=== PATIENT | male | born 1990 | race Caucasian/White ===

== ENCOUNTER 2020-09-01 17:56 | Observation (INO) | payer OTHER, SELFPAY ==
[2020-09-01 19:11] LABS: Protime INR 1.05
[2020-09-01 19:20] LABS: Absolute Lymphocytes (CBC) 2.1 K/uL (0.7-4.9); Basophils % 0.6 % (0-1.3); MPV 6.6 fL (7.6-11.3); RBC Red Blood Cell Count 4.05 M/uL (4.33-5.43)
[2020-09-01 19:45] LABS: ALT/SGPT 37 U/L (12-78); AST/SGOT 26 U/L (15-37); Albumin 3.3 g/dL (3.4-5.0); Alkaline Phosphatase 194 U/L (45-117); BUN Blood Urea Nitrogen 14 mg/dL (7-18); Bicarbonate 31 mmol/L (21-32); Bilirubin Direct < 0.1 mg/dL (0-0.2); Bilirubin Total 0.4 mg/dL (0.2-1.0); Glucose Level 85 mg/dL (74-106); Potassium 3.7 mmol/L (3.5-5.1); Protein, Total 6.8 g/dL (6.4-8.2); Sodium Level 140 mmol/L (136-145)
--- NOTE | 2020-09-01 21:51 | ER ---
Nurse's Notes [facility] Name: Artie Martin Age: 30 yrs Sex: Male : 1990 Arrival Date: 09/01/2020 Time: 18:02 Bed 25 Private MD: Diagnosis: Benzodiazapine Overdose;Overdose on muscle relaxants ;Altered mental status, unspecified Presentation: 09/01 18:02 Chief complaint: EMS states: history of substance abuse, substance of choice is dm5 typically meth. Pt states that he took 4 or 5 Soma. Pt states that he just wanted to feel good. Coronavirus screen: Client denies travel out of the [place] in the last 14 days. At this time, the client does not indicate any symptoms associated with coronavirus-19. Ebola Screen: Patient negative for fever greater than or equal to 101.5 degrees Fahrenheit, and additional compatible Ebola Virus Disease symptoms Patient denies exposure to infectious person. Patient denies travel to an Ebola-affected area in the 21 days before illness onset. No symptoms or risks identified at this time. 18:02 Method Of Arrival: EMS: [facility] dm5 18:13 Note poison control contacted, due to time since ingestion their suggestion is dm5 symptomatic supportive care, to monitor for hyermania, hypotension and tachycardia. Per poison control due to mental state it is likely that he ingested greater than 10 Soma at 350mg. 18:13 Initial Sepsis Screen: Does the patient meet any 2 criteria? HR > 90 bpm. No. Patient's dm5 initial sepsis screen is negative. Does the patient have a suspected source of infection? No. Patient's initial sepsis screen is negative. Risk Assessment: Do you want to hurt yourself or someone else? Patient reports no desire to harm self or others. Note pt just reported that he also took three 2 mg Xanax. Onset of symptoms was September 01, 2020. 18:13 Acuity: ASHELY 2 dm5 Historical: - PMHx: 18:23 Seizures; dm5 - PSHx: 18:23 right knee surgery; back surgery; dm5 - Immunization history:: Adult Immunizations unknown. - Social history:: Smoking status: unknown. Screenin:30 Abuse screen: Denies threats or abuse. Nutritional screening: No deficits noted. jv1 Tuberculosis screening: No symptoms or risk factors identified. Fall Risk None identified. Assessment: 19:30 General: Appears in no apparent distress. comfortable, obese, Behavior is calm, jv1 cooperative, anxious. Pain: Denies pain. Neuro: Level of Consciousness is awake, alert, obeys commands, Oriented to person, place, time, situation, Middle [employer] Director are equal bilaterally Moves all extremities. Gait is steady, Facial symmetry appears normal. Cardiovascular: Denies chest pain, Heart tones S1 S2 Capillary refill < 3 seconds Pulses are all present. Respiratory: Airway is patent Respiratory effort is even, unlabored, Respiratory pattern is regular, symmetrical, Breath sounds are clear bilaterally. GI: Abdomen is round non-distended, Bowel sounds present X 4 quads. : No signs and/or symptoms were reported regarding the genitourinary system. EENT: No signs and/or symptoms were reported regarding the EENT system. Derm: Skin is intact, is healthy with good turgor. Musculoskeletal: No signs and/or symptoms reported regarding the musculoskeletal system. 19:39 Reassessment: provider said it is okay for pt to eat. jv1 20:03 Reassessment: provider in the room with pt. jv1 20:27 Reassessment: Provider stated pt refused EKG. jv1 20:30 Reassessment: Patient appears in no apparent distress at this time. No changes from jv1 previously documented assessment. Patient and/or family updated on plan of care and expected duration. Pain level reassessed. 21:16 Reassessment: Patient appears in no apparent distress at this time. No changes from jv1 previously documented assessment. Patient and/or family updated on plan of care and expected duration. Pain level reassessed. 22:05 Reassessment: poison control on phone, updated on VS and lab results, phone call ended. sg 23:10 Reassessment: Hospitalist went to the room to assess pt. jv1 23:20 Reassessment: pt ambulating in hallway with steady gait, reports that his mom is sg outside in the parking lot. 09/02 00:00 Reassessment: Patient appears in no apparent distress at this time. No changes from jv1 previously documented assessment. Patient and/or family updated on plan of care and expected duration. Pain level reassessed. pt stated he is going to stay. 04:52 Reassessment: Patient appears in no apparent distress at this time. pt on the call sg light, requesting ice water. pt provided with ice water, tolerated PO water at this time, will continue to monitor. Vital Signs: 09/01 18:13 BP 118 / 72; Pulse 117; Resp 14; Pulse Ox 99% on R/A; dm5 19:30 BP 115 / 65; Pulse 96; Resp 18; Temp 98.1; Pulse Ox 100% on R/A; Pain 0/10; jv1 20:30 BP 109 / 60; Pulse 88; Resp 18; Temp 98; Pulse Ox 89% on R/A; Pain 0/10; jv1 21:30 BP 114 / 69; Pulse 73; Resp 18; Temp 98.14; Pulse Ox 99% on 2 lpm NC; Pain 0/10; jv1 22:30 BP 117 / 72; Pulse 75; Resp 18; Temp 98.3; Pulse Ox 98% on 2 lpm NC; jv1 23:30 BP 118 / 70; Pulse 75; Resp 18; Temp 98.0; Pulse Ox 100% ; Pain 0/10; jv1 ED Course: 18:02 Patient arrived in ED. dm5 18:09 Guido Scott PA is PHCP. jr8 18:09 Rich Moore MD is Attending Physician. jr8 18:22 Triage completed. dm5 18:56 Thea Rosado, MARCIN is Primary Nurse. dm5 19:30 Arm band placed on right wrist. jv1 19:30 Patient has correct armband on for positive identification. Bed in low position. Call jv1 light in reach. Side rails up X2. 21:49 Walter Jj MD is Hospitalizing Provider. jr8 21:55 Jefferson Jj MD is Hospitalizing Provider. la1 09/02 00:05 No provider procedures requiring assistance completed. Patient admitted, IV remains in mg2 place. Administered Medications: No medications were administered Outcome: 09/01 21:50 Decision to Hospitalize by Provider. jr8 09/02 00:05 Admitted to ER Hold. [facility]. mg2 Condition: stable Instructed on the need for admit, Demonstrated understanding of instructions. 08:03 Patient left the ED. dm5 Signatures: Thea Rosado RN RN ian5 Wayne Coughlin RN RN Guido Scott PA PA jr8 Efrain Pinto FNP-Bita TELEPHONE SERVICE ADVISER-Cla1 Lex Pro, RN RN mg2 Megan Kapadia, RN RN jv1
--- NOTE | 2020-09-01 21:51 | EDPHYS ---
Physician Documentation [facility] Name: Artie Martin Age: 30 yrs Sex: Male : 1990 Arrival Date: 09/01/2020 Time: 18:02 Bed 25 Private MD: ED Physician Rich Moore HPI: 09/01 19:08 This 30 yrs old Male presents to ER via EMS with complaints of Overdose. jr8 19:08 The patient presents to the emergency department after a known overdose, that was jr8 intentional. Context: Method: the patient has a confirmed or suspected ingestion, of benzodiazepines, muscle relaxants , Time: the patient's OD/poisoning occurred at an unknown time, the OD/poisoning occurred at at home. Associated signs and symptoms: Pertinent positives: decreased level of consciousness. Severity of symptoms: At their worst the symptoms were mild in the emergency department the symptoms are unchanged. The patient has not experienced similar symptoms in the past. The patient has not recently seen a physician. Patient stated that he was prescribed in past Xanax and soma for back pain related to injury and surgery. Stated that he had been having a bad day and wanted to relax so took three 2 mg Xanax and three 350 mg soma. Family had found him non arousable at home and called EMS. Patient alert and oriented to person, place, time, event in ED. Denies suicidal ideations . Historical: - PMHx: 18:23 Seizures; dm5 - PSHx: 18:23 right knee surgery; back surgery; dm5 - Immunization history:: Adult Immunizations unknown. - Social history:: Smoking status: unknown. ROS: 19:08 Eyes: Negative for injury, pain, redness, and discharge, ENT: Negative for injury, jr8 pain, and discharge, Neck: Negative for injury, pain, and swelling, Cardiovascular: Negative for chest pain, palpitations, and edema, Respiratory: Negative for shortness of breath, cough, wheezing, and pleuritic chest pain, Abdomen/GI: Negative for abdominal pain, nausea, vomiting, diarrhea, and constipation, Back: Negative for injury and pain, MS/Extremity: Negative for injury and deformity, Skin: Negative for injury, rash, and discoloration. 19:08 Neuro: Negative for headache, weakness, numbness, tingling, and seizure. Exam: 19:08 Eyes: Pupils equal round and reactive to light, extra-ocular motions intact. Lids and jr8 lashes normal. Conjunctiva and sclera are non-icteric and not injected. Cornea within normal limits. Periorbital areas with no swelling, redness, or edema. ENT: Nares patent. No nasal discharge, no septal abnormalities noted. Tympanic membranes are normal and external auditory canals are clear. Oropharynx with no redness, swelling, or masses, exudates, or evidence of obstruction, uvula midline. Mucous membranes moist. Neck: Trachea midline, no thyromegaly or masses palpated, and no cervical lymphadenopathy. Supple, full range of motion without nuchal rigidity, or vertebral point tenderness. No Meningismus. Cardiovascular: Regular rate and rhythm with a normal S1 and S2. No gallops, murmurs, or rubs. Normal PMI, no JVD. No pulse deficits. Respiratory: Lungs have equal breath sounds bilaterally, clear to auscultation and percussion. No rales, rhonchi or wheezes noted. No increased work of breathing, no retractions or nasal flaring. Abdomen/GI: Soft, non-tender, with normal bowel sounds. No distension or tympany. No guarding or rebound. No evidence of tenderness throughout. Back: No spinal tenderness. No costovertebral tenderness. Full range of motion. Skin: Warm, dry with normal turgor. Normal color with no rashes, no lesions, and no evidence of cellulitis. MS/ Extremity: Pulses equal, no cyanosis. Neurovascular intact. Full, normal range of motion. 19:08 Constitutional: The patient appears alert, awake, sleepy in appearance 19:08 Neuro: Orientation: to person, place, time \T\ situation. Mentation: able to follow commands, slow to respond, Cranial nerves: CN I not tested, CN II- XII are normal as tested, visual wilkinson are intact. extraocular movements are intact, Speech is clear and appropriate. Tongue strength is normal, Motor: moves all fours, Sensation: no obvious gross deficits. Vital Signs: 18:13 BP 118 / 72; Pulse 117; Resp 14; Pulse Ox 99% on R/A; dm5 19:30 BP 115 / 65; Pulse 96; Resp 18; Temp 98.1; Pulse Ox 100% on R/A; Pain 0/10; jv1 20:30 BP 109 / 60; Pulse 88; Resp 18; Temp 98; Pulse Ox 89% on R/A; Pain 0/10; jv1 21:30 BP 114 / 69; Pulse 73; Resp 18; Temp 98.14; Pulse Ox 99% on 2 lpm NC; Pain 0/10; jv1 22:30 BP 117 / 72; Pulse 75; Resp 18; Temp 98.3; Pulse Ox 98% on 2 lpm NC; jv1 23:30 BP 118 / 70; Pulse 75; Resp 18; Temp 98.0; Pulse Ox 100% ; Pain 0/10; jv1 MDM: 18:09 Patient medically screened. jr8 19:14 Data reviewed: vital signs, nurses notes, lab test result(s). Data interpreted: Pulse jr8 oximetry: on room air is 99 %. Interpretation: normal. Counseling: I had a detailed discussion with the patient and/or guardian regarding: the historical points, exam findings, and any diagnostic results supporting the discharge/admit diagnosis, lab results, the need for outpatient follow up, a family practitioner, to return to the emergency department if symptoms worsen or persist or if there are any questions or concerns that arise at home. ED course: Patient doing better. No respiratory compromise at this time. Will continue to monitor for another hour or so . 21:47 ED course: Patient started to become more lethargic. While sleeping continues to need jr8 oxygen supplementation now. To unsafe to go home at this time. Will observe over night . 09/01 18:12 Order name: Acetaminophen; Complete Time: 19:51 5 09/01 18:12 Order name: Basic Metabolic Panel; Complete Time: 19:51 dm5 09/01 18:12 Order name: CBC with Diff; Complete Time: 19:31 dm5 09/01 18:12 Order name: ETOH Level; Complete Time: 19:51 dm5 09/01 18:12 Order name: Hepatic Function; Complete Time: 19:51 dm5 09/01 18:12 Order name: PT-INR; Complete Time: 19:17 dm5 09/01 18:12 Order name: Ptt, Activated; Complete Time: 19:17 dm5 09/01 18:12 Order name: Salicylate; Complete Time: 19:51 dm5 09/01 18:12 Order name: Urine Drug Screen 09/02 03:11 Order name: COVID-19 mg2 09/02 05:34 Order name: CORONAVIRUS EDMS 09/02 05:40 Order name: Basic Metabolic Panel; Complete Time: 20:25 EDMS 09/02 05:55 Order name: CBC with Automated Diff; Complete Time: 20:25 EDMS 09/02 06:21 Order name: SARS-COV-2 RT PCR; Complete Time: 20:25 EDTX 09/01 18:12 Order name: EKG; Complete Time: 18:13 dm5 09/01 18:12 Order name: IV Saline Lock; Complete Time: 18:56 dm5 09/01 18:12 Order name: Labs collected and sent; Complete Time: 18:56 dm5 Administered Medications: No medications were administered Disposition: 09/02 09:50 Co-signature as Attending Physician, Rich Moore MD I agree with the assessment and kdr plan of care. Disposition: 09/01/20 21:50 Hospitalization ordered by Jefferson Jj for Observation. Preliminary diagnosis are Benzodiazapine Overdose, Overdose on muscle relaxants , Altered mental status, unspecified. - Bed requested for [facility] ER HOLD. - Status is Observation. dm5 - Condition is Stable. - Problem is new. - Symptoms are unchanged. Signatures: Dispatcher [employer] [facility] Thea Rosado, RN RN dm5 Rich Moore MD MD [facility] Guido Scott PA PA jr8 Efrain Pinto, BUTTON MACHINE OPERATOR-C BUTTON MACHINE OPERATOR-Cla1 Norah Lr, RN RN cg Megan Kapadia, RN RN jv1 Corrections: (The following items were deleted from the chart) 09/01 20:20 18:12 EKG - Nurse/Tech ordered. dm5 jp3 21:55 21:50 Hospitalization Ordered by Walter Jj MD for Observation. Preliminary diagnosis la1 is Benzodiazapine Overdose; Overdose on muscle relaxants ; Altered mental status, unspecified. Bed requested for Telemetry/MedSurg (observation). Status is Observation. Condition is Stable. Problem is new. Symptoms are unchanged. jr8 23:19 21:55 09/01/2020 21:50 Hospitalization Ordered by Jefferson Jj MD for Observation. cg Preliminary diagnosis is Benzodiazapine Overdose; Overdose on muscle relaxants ; Altered mental status, unspecified. Bed requested for Telemetry/MedSurg (observation). Status is Observation. Condition is Stable. Problem is new. Symptoms are unchanged. la1 09/02 08:03 09/01 23:19 09/01/2020 21:50 Hospitalization Ordered by Jefferson Jj MD for dm5 Observation. Preliminary diagnosis is Benzodiazapine Overdose; Overdose on muscle relaxants ; Altered mental status, unspecified. Bed requested for [facility] ER HOLD. Status is Observation. Condition is Stable. Problem is new. Symptoms are unchanged. cg
--- NOTE | 2020-09-01 23:36 | P.HP ---
Certification for Inpatient Patient admitted to: Observation With expected LOS: <2 Midnights Patient will require the following post-hospital care: None Practitioner: I am a practitioner with admitting privileges, knowledge of patient current condition, hospital course, and medical plan of care. Services: Services provided to patient in accordance with Admission requirements found in Title 42 Section 412.3 of the Code of Federal Regulations <Efrain Pinto - Last Filed: 09/01/20 23:31> Patient History Date of Service: 09/01/20 History of Present Illness: 30-year-old male with history of seizure disorder presents to the ER for altered mental status. Patient reported that he was having a bad day in to relax so he took 3 2 mg Xanax and 3 350 mg somas. Patient denied suicidal ideation to the emergency department provider. Labs unremarkable, plan was for discharge but patient mental status decline, patient is extremely somnolent, not responding to verbal stimulus, responsive only to significant painful stimulus with some occasional snoring respirations, patient maintaining his airway and saturating well. ED provider wishes to admit patient for further evaluation and management. When I saw the patient in the ER he was sleeping, not responsive to loud verbal stimulus or tactile stimulus, opened eyes to painful stimulus but quickly fell back asleep. Will admit for further evaluation and management, will downgrade to med surge once patient's mental status improves. - Past Medical/Surgical History -: seizure disorder -: None Psychosocial/ Personal History: Unable to obtain - Family History Family History: Reviewed- Non-Contributory - Social History Smoking Status: Unknown if ever smoked CD- Drugs: Yes Place of Residence: Home <Efrain Pinto - Last Filed: 09/01/20 23:31> Date of Service: 09/02/20 <Jefferson Jj - Last Filed: 09/02/20 22:08> Allergies No Known Drug Allergies Allergy (Verified 09/02/20 05:35) Unknown Review of Systems is unable to be obtained <Efrain Pinto - Last Filed: 09/01/20 23:31> Physical Examination - Physical Exam General: Other (Somnolent) HEENT: Atraumatic, Normocephalic Neck: Supple Respiratory: Clear to auscultation bilaterally, Normal air movement Cardiovascular: No edema, Normal S1 S2 Capillary refill: <2 Seconds Gastrointestinal: Normal bowel sounds, Soft and benign, No tenderness, No masses, No rebound Musculoskeletal: No contractures, No erythema, No tenderness Integumentary: No significant lesion, No tenderness/swelling, No erythema Neurological: Normal speech, Normal strength at 5/5 x4 extr, Normal tone - Studies Laboratory Data (last 24 hrs) 09/01/20 18:50: PT 12.4, INR 1.05, APTT 31.5 09/01/20 18:50: WBC 8.6, Hgb 11.5 L, Hct 33.0 L, Plt Count 263 09/01/20 18:50: Sodium 140, Potassium 3.7, BUN 14, Creatinine 1.24, Glucose 85, Total Bilirubin 0.4, AST 26, ALT 37, Alkaline Phosphatase 194 H <Efrain Pinto - Last Filed: 09/01/20 23:31> Assessment and Plan - Plan Assessment Altered mental status secondary to Intentional drug overdose without suicidal ideation Seizure disorder Plan Altered mental status secondary to Intentional drug overdose without suicidal ideation: At this time patient is still very somnolent, responsive to painful stimulus only with occasional snoring respirations. Will need to observe closely until mentation improves. Continue with IV fluids, hold all narcotics, benzodiazepines, other medications that affect mental status. DVT prophylaxis with Lovenox 40 mg subcutaneous once daily. Patient can be discharged once mentation improves. Seizure disorder: Obtain and continue home medications. Discharge Plan: Home Plan to discharge in: 24 Hours - Advance Directives Does patient have a Living Will: No Does patient have a Durable POA for Healthcare: No - Code Status/Comfort Care Code Status Assessed: Yes (Full code) Critical Care: No Time Spent Managing Pts Care (In Minutes): 55 <Efrain Pinto - Last Filed: 09/01/20 23:31> - Plan Plan of care reviewed as outlined above and agree with Efrain Pinto monitor, IVF, likely dc within 24hrs <Jefferson Jj - Last Filed: 09/02/20 22:08>
[2020-09-02] MEDS ORDERED: ONDANSETRON 4 MG/2 ML VIAL IV PRN (01:19)
[2020-09-02] MEDS ORDERED: NA CHLORIDE 0.9% 1,000 ML IV SCH (01:19)
[2020-09-02] MEDS ORDERED: ACETAMINOPHEN 500 MG TAB PO PRN (01:19)
[2020-09-02 01:58] VITALS: O2SAT 2; BMI 28.1
--- NOTE | 2020-09-02 02:08 | P.DS ---
Admission Date: 09/01/20 Discharge Date: 09/02/20 Primary Care Provider: None Disposition: ROUTINE DISCHARGE Discharge Condition: GOOD Reason for Admission: Intentional overdose without suicidal ideations Consultations: None Procedures: None Brief History of Present Illness: 30-year-old male with history of seizure disorder presents to the ER for altered mental status. Patient reported that he was having a bad day in 1 to relax so he took 3 2 mg Xanax and 3 350 mg somas. Patient denied suicidal ideation to the emergency department provider. Labs unremarkable, plan was for discharge but patient mental status decline, patient is extremely somnolent, not responding to verbal stimulus, responsive only to significant painful stimulus with some occasional snoring respirations, patient maintaining his airway and saturating well. ED provider wishes to admit patient for further evaluation and management. When I saw the patient in the ER he was sleeping, not responsive to loud verbal stimulus or tactile stimulus, opened eyes to painful stimulus but quickly fell back asleep. Will admit for further evaluation and management, will downgrade to med [facility] once patient's mental status improves. Hospital Course: Patient was admitted after intentionally taking extra dose of Xanax and Soma in order to relax after he reported he had a stressful day. Patient is awake, alert, oriented x3 at this time. Patient adamantly denies any thoughts of suicidal ideations self-harm or thoughts of harming others. Patient wished to be late last night but I advised against this as he still was drowsy, at that time he wished to leave against medical advice, I had him called his mother who would be the one to pick him up if he was to leave and discussed his condition with her. She also preferred that he stay in and the 2 of us together convinced him to stay overnight. Patient did well throughout the night, saturating fine, much more alert, tolerating p.o.. Again strictly denying any thoughts of harming himself. This was also discussed with patient's mother. Patient is stable for discharge at this time. General: Alert, In no apparent distress HEENT: Atraumatic, PERRLA Neck: Supple, JVD not distended Respiratory: Clear to auscultation bilaterally, Normal air movement Cardiovascular: Regular rate/rhythm, Normal S1 S2 Gastrointestinal: Normal bowel sounds, No tenderness Musculoskeletal: No tenderness Integumentary: No rashes Neurological: Normal speech, Normal tone, Normal affect Laboratory Data at Discharge: WBC 8.6 K/uL (4.3-10.9) 09/01/20 18:50 Hgb 11.5 g/dL (13.6-17.9) L 09/01/20 18:50 Hct 33.0 % (39.6-49.0) L 09/01/20 18:50 Plt Count 263 K/uL (152-406) 09/01/20 18:50 PT 12.4 SECONDS (9.5-12.5) 09/01/20 18:50 INR 1.05 09/01/20 18:50 APTT 31.5 SECONDS (24.3-36.9) 09/01/20 18:50 Sodium 140 mmol/L (136-145) 09/01/20 18:50 Potassium 3.7 mmol/L (3.5-5.1) 09/01/20 18:50 BUN 14 mg/dL (7-18) 09/01/20 18:50 Creatinine 1.24 mg/dL (0.55-1.3) 09/01/20 18:50 Glucose 85 mg/dL (74-106) 09/01/20 18:50 Total Bilirubin 0.4 mg/dL (0.2-1.0) 09/01/20 18:50 AST 26 U/L (15-37) 09/01/20 18:50 ALT 37 U/L (12-78) 09/01/20 18:50 Alkaline Phosphatase 194 U/L (45-117) H 09/01/20 18:50 Patient Discharge Instructions: Please do not take extra doses of your prescribed medications. Please follow up with the primary care doctor in 1-2 weeks to follow up this hospitalization. If you do develop any thoughts of hurting herself for any reason please return for re-evaluation. Diet: Regular Activity: Ad cristian Followup: Unknown,U [Primary Care Provider] - Time spent managing pt's care (in minutes): 55
[2020-09-02 03:33] VITALS: TEMP 98.1
[2020-09-02 05:31] LABS: Absolute Lymphocytes (CBC) 2.8 K/uL (0.7-4.9); Basophils % 0.4 % (0-1.3); Hematocrit 31.3 % (39.6-49.0); Lymphocytes % 35.1 % (15.3-44.8); MPV 6.9 fL (7.6-11.3); RBC Red Blood Cell Count 3.83 M/uL (4.33-5.43)
[2020-09-02 05:40] LABS: Potassium 3.6 mmol/L (3.5-5.1)
[2020-09-02 06:25] VITALS: BP 105/65
[2020-09-02] MEDS ORDERED: POTASSIUM CL SA 10 MEQ TAB PO ONE ×2 (06:53→07:30)
[2020-09-02] MEDS ORDERED: ENOXAPARIN 40 MG/0.4 ML SQ SCH (09:00)
== END 2020-09-02 07:45 | disposition home or self-care (01) ==
LOC: ER 17:56 → ERHOLD 22:38
PROVIDERS: ADMIT Hospitalist; ATTEND Hospitalist
DX: T42.4X1A Poisoning by benzodiazepines, accidental (unintentional), initial encounter (principal); T42.8X1A Poisoning by antiparkinsonism drugs and other central muscle-tone depressants, accidental (unintentional), initial encounter; G40.909 Epilepsy, unspecified, not intractable, without status epilepticus; R41.82 Altered mental status, unspecified; Z20.822 Contact with and (suspected) exposure to COVID-19
CPT/HCPCS: 36415; 80048; 80076; 80320; 80329; 85025; 85610; 85730; 99285; G0378; U0003

== ENCOUNTER 2021-02-20 17:25 | Emergency (ER) | payer SELFPAY ==
--- NOTE | 2021-02-20 17:53 | ER ---
Nurse's Notes [facility] Name: Artie Martin Age: 30 yrs Sex: Male : 1990 Arrival Date: 02/20/2021 Time: 17:26 Bed 3 Private MD: Diagnosis: Presentation: 02/20 17:32 Chief complaint: EMS states: "Pt found in front of [facility] agonal breathing. Pt kg stated, "I used cocaine, xanax, and Percocet.". Coronavirus screen: Client denies travel out of the [place] in the last 14 days. At this time, unable to obtain information related to travel outside the [place] At this time, the client does not indicate any symptoms associated with coronavirus-19. Ebola Screen: Patient negative for fever greater than or equal to 101.5 degrees Fahrenheit, and additional compatible Ebola Virus Disease symptoms Patient denies exposure to infectious person. Patient denies travel to an Ebola-affected area in the 21 days before illness onset. Initial Sepsis Screen: Does the patient meet any 2 criteria? No. Patient's initial sepsis screen is negative. Does the patient have a suspected source of infection? No. Patient's initial sepsis screen is negative. Risk Assessment: Do you want to hurt yourself or someone else? Patient reports no desire to harm self or others. Onset of symptoms. 17:32 Method Of Arrival: EMS: [facility] kg 17:32 Acuity: ASHELY 3 kg Triage Assessment: 17:46 General: Appears in no apparent distress. Behavior is calm, cooperative, appropriate kg for age, quiet. Pain: Denies pain. Historical: - Allergies: 17:46 No Known Allergies; kg - PMHx: 17:46 Seizures; Depression; kg - PSHx: 17:46 cervical sx; kg - Immunization history:: Adult Immunizations not up to date, Client reports having NOT received the Covid vaccine. - Social history:: Smoking status: Patient denies any tobacco usage or history of. Patient uses street drugs, cocaine, Xanax bars, street percet . - Family history:: not pertinent. Assessment: 17:51 Reassessment: Patient stated that he wanted to leave the hospital and go AMA. Dr. gail Deng explained on the risk and patient still wanted to go AMA. Pt signed paperwork, IV removed and patient walked out with friend.. Vital Signs: 17:32 BP 122 / 82; Pulse 52; Resp 20; Temp 98.9(O); Pulse Ox 99% on R/A; Weight 104.33 kg kg (R); Height 5 ft. 10 in. (177.80 cm) (R); Pain 0/10; 17:32 Body Mass Index 33.00 (104.33 kg, 177.80 cm) kg ED Course: 17:26 Patient arrived in ED. iw 17:27 Kvng Deng MD is Attending Physician. dmitry 17:40 Isabel Andrew, RN is Primary Nurse. kg 17:44 Triage completed. kg 17:45 Maintain EMS IV. Dressing intact. Good blood return noted. Site clean \\T\\ dry. Gauge \\T\\ kg site: 20 L AC. 17:46 Arm band placed on right wrist. kg 17:49 IV discontinued, intact, bleeding controlled, No redness/swelling at site. Pressure kg dressing applied. Administered Medications: No medications were administered Outcome: 17:54 Patient left the ED. kg Signatures: Kvng Deng MD MD cha Williams, Irene, RN RN iw Isabel Andrew, MARCIN RN kg Corrections: (The following items were deleted from the chart) 17:54 17:32 BP 122 / 82; Pulse 52bpm; Resp 20bpm; Pulse Ox 99% RA; 104.33 kg Reported; Height kg 5 ft. 10 in. Reported; BMI: 33.0; Pain 0/10; kg
[2021-02-20 17:59] VITALS: BP 122/82; TEMP 98.9; O2SAT 99
--- NOTE | 2021-02-21 18:22 | EDPHYS ---
Physician Documentation [facility] Name: Artie Martin Age: 30 yrs Sex: Male : 1990 Arrival Date: 02/20/2021 Time: 17:26 Bed 3 Private MD: ED Physician Kvng Deng HPI: 02/20 17:54 This 30 yrs old Male presents to ER via EMS with complaints of drug use and dmitry syncope. 17:54 The patient presents with confusion. Onset: The symptoms/episode began/occurred just dmitry prior to arrival. Possible causes: drug use, alcohol, low blood sugar. The patient has experienced syncope, collapsed, lost consciousness. Onset: The symptoms/episode began/occurred. Duration: This was a single episode, that lasted 30 minute(s). Associated signs and symptoms: The patient has no apparent associated signs or symptoms. Context: the episode(s) was witnessed, by a bystander. Current symptoms: In the emergency department the patient's symptoms have improved, moderately. Associated injury: The patient did not suffer any apparent associated injury. Associated signs and symptoms: Pertinent positives: confusion, lightheadedness. Historical: - Allergies: 17:46 No Known Allergies; kg - PMHx: 17:46 Seizures; Depression; kg - PSHx: 17:46 cervical sx; kg - Immunization history:: Adult Immunizations not up to date, Client reports having NOT received the Covid vaccine. - Social history:: Smoking status: Patient denies any tobacco usage or history of. Patient uses street drugs, cocaine, Xanax bars, street percet . - Family history:: not pertinent. ROS: 17:54 Constitutional: Negative for fever, chills, and weight loss, Eyes: Negative for injury, dmitry pain, redness, and discharge, ENT: Negative for injury, pain, and discharge, Neck: Negative for injury, pain, and swelling, Cardiovascular: Negative for chest pain, palpitations, and edema, Respiratory: Negative for shortness of breath, cough, wheezing, and pleuritic chest pain, Abdomen/GI: Negative for abdominal pain, nausea, vomiting, diarrhea, and constipation, Back: Negative for injury and pain, : Negative for injury, bleeding, discharge, and swelling, MS/Extremity: Negative for injury and deformity, Skin: Negative for injury, rash, and discoloration, Psych: Negative for depression, anxiety, suicide ideation, homicidal ideation, and hallucinations, Allergy/Immunology: Negative for hives, rash, and allergies, Endocrine: Negative for neck swelling, polydipsia, polyuria, polyphagia, and marked weight changes, Hematologic/Lymphatic: Negative for swollen nodes, abnormal bleeding, and unusual bruising. 17:54 Neuro: Positive for altered mental status, syncope, near syncope, weakness. Exam: 17:54 Constitutional: This is a well developed, well nourished patient who is awake, alert, dmitry and in no acute distress. Head/Face: Normocephalic, atraumatic. Eyes: Pupils equal round and reactive to light, extra-ocular motions intact. Lids and lashes normal. Conjunctiva and sclera are non-icteric and not injected. Cornea within normal limits. Periorbital areas with no swelling, redness, or edema. ENT: Nares patent. No nasal discharge, no septal abnormalities noted. Tympanic membranes are normal and external auditory canals are clear. Oropharynx with no redness, swelling, or masses, exudates, or evidence of obstruction, uvula midline. Mucous membranes moist. Neck: Trachea midline, no thyromegaly or masses palpated, and no cervical lymphadenopathy. Supple, full range of motion without nuchal rigidity, or vertebral point tenderness. No Meningismus. Chest/axilla: Normal chest wall appearance and motion. Nontender with no deformity. No lesions are appreciated. Cardiovascular: Regular rate and rhythm with a normal S1 and S2. No gallops, murmurs, or rubs. Normal PMI, no JVD. No pulse deficits. Respiratory: Lungs have equal breath sounds bilaterally, clear to auscultation and percussion. No rales, rhonchi or wheezes noted. No increased work of breathing, no retractions or nasal flaring. Abdomen/GI: Soft, non-tender, with normal bowel sounds. No distension or tympany. No guarding or rebound. No evidence of tenderness throughout. Back: No spinal tenderness. No costovertebral tenderness. Full range of motion. Male : Normal genitalia with no discharge or lesions. Skin: Warm, dry with normal turgor. Normal color with no rashes, no lesions, and no evidence of cellulitis. MS/ Extremity: Pulses equal, no cyanosis. Neurovascular intact. Full, normal range of motion. Neuro: Awake and alert, GCS 15, oriented to person, place, time, and situation. Cranial nerves II-XII grossly intact. Motor strength 5/5 in all extremities. Sensory grossly intact. Cerebellar exam normal. Normal gait. Psych: Awake, alert, with orientation to person, place and time. Behavior, mood, and affect are within normal limits. Vital Signs: 17:32 BP 122 / 82; Pulse 52; Resp 20; Temp 98.9(O); Pulse Ox 99% on R/A; Weight 104.33 kg kg (R); Height 5 ft. 10 in. (177.80 cm) (R); Pain 0/10; 17:32 Body Mass Index 33.00 (104.33 kg, 177.80 cm) kg MDM: 17:27 Patient medically screened. [facility] 17:57 Differential Diagnosis: cardiac arrhythmia, cerebrovascular accident, drug effect, dmitry emotional response, GI bleed, seizure, sepsis, transient ischemic attack, vasovagal episode, CVA, alcohol intoxication, hypoglycemia, intracranial bleed. Data reviewed: vital signs, nurses notes, EMS record. Data interpreted: monitoring specialist: rate is 52 beats/min, rhythm is regular, Pulse oximetry: on room air is 52 %. Test interpretation: by ED physician or midlevel provider:. Counseling: I had a detailed discussion with the patient and/or guardian regarding: the historical points, exam findings, and any diagnostic results supporting the discharge/admit diagnosis. 02/20 17:29 Order name: EKG - Nurse/Tech [facility] 02/20 17:29 Order name: IV Saline Lock [facility] 02/20 17:29 Order name: Labs collected and sent [facility] 02/20 17:29 Order name: Suicide Screening ([place]) [facility] 02/20 17:29 Order name: Urine Dipstick-Ancillary (obtain specimen) [facility] 02/20 17:29 Order name: Seizure Precautions [facility] Administered Medications: No medications were administered Disposition: 02/20/21 17:53 Patient has left against medical advice. - Patients states they are going to Home. - Condition is Stable. Signatures: Dispatcher [employer] EDMS Kvng Deng MD MD cha Graham, Kristen, RN RN kg Corrections: (The following items were deleted from the chart) 17:54 17:53 02/20/2021 17:53 Patients has left against medical advice. Patient states they kg are going to Home. Condition is Stable. kg
== END 2021-02-20 17:54 | disposition left against medical advice (07) ==
LOC: ER 17:25
DX: R41.82 Altered mental status, unspecified (principal)
CPT/HCPCS: 99282